=== PATIENT | female | born 1950 | race Caucasian/White ===

== ENCOUNTER → 2021-09-22 18:30 | Outpatient (CLI) | payer MEDICARE, BC, SELFPAY | PROVIDERS: Visit Provider Physician Assistant | DX: N89.8 Other specified noninflammatory disorders of vagina (principal) | CPT/HCPCS: 87086; 87210 ==

== ENCOUNTER → 2023-03-19 10:45 | Outpatient (CLI) | payer MEDICARE, BC, SELFPAY ==
--- NOTE | 2023-03-19 | DI.RAD.S_ITS ---
Bone Density Report Name: MCKENZIE LOPEZ Age: 73 Sex: Female Ethnicity: White Date of : 1950 Indication: postmenopausal; screening for osteoporosis; Referring Provider: SURAJ ELY Study: Bone densitometry was performed. Exam Date: March 19, 2023 Accession number: [id number] Bone Density: Region BMD T-score Z-score Classification AP Spine(L1-L4) 0.823 -2.0 0.1 Osteopenia Femoral Neck (Left) 0.561 -2.6 -0.7 Osteoporosis Total Hip (Left) 0.709 -1.9 -0.3 Osteopenia Femoral Neck (Right) 0.572 -2.5 -0.6 Osteoporosis Total Hip (Right) 0.735 -1.7 -0.1 Osteopenia Total Hip Mean 0.722 -1.8 -0.2 Osteopenia World Health Organization criteria for BMD impression classify patients as: Normal (T-score at or above -1.0), Osteopenia (T-score between -1.0 and -2.5), or Osteoporosis (T-score at or below -2.5). Impression: The patient has osteoporosis, based on the Left Femoral Neck T-score. Discussion: INCREASED RISK OF FRACTURE. BONE DENSITY IS UNDESIRABLY LOW AT ONE OR MORE SKELETAL SITES, CONSISTENT WITH POSTMENOPAUSAL OSTEOPOROSIS. This patient's lowest T-score meets the World Health Organization's (WHO) criteria for osteoporosis at one or more sites (T-score -2.5 or below). In untreated patients, the risk of osteoporotic fracture increases approximately two-fold for each 1.0 SD decrease in T-score. Low bone density is not the only risk factor for fracture; also consider factors such as patient's age, frailty or poor health, risk of falling, risk of injury, previous osteoporotic fracture, family history of osteoporosis, cigarette smoking, low body weight, etc. Not everyone with low bone mineral density has osteoporosis; osteomalacia and other metabolic bone disorders should also be considered. Patients who have osteoporosis should be evaluated for specific diseases and conditions (secondary causes) that may cause or contribute to bone loss. The [place] [employer]ocrinologists (AACE) and National Osteoporosis Foundation (NOF) recommend pharmacologic intervention for all postmenopausal women whose T-score is in this range. The patient should follow a healthful lifestyle (good nutrition with adequate calcium and vitamin D, and appropriate weight-bearing exercise). Follow-Up: Consider a repeat BMD and Vertebral Fracture Assessment (VFA) exam in 2 years or sooner if medically necessary, to reassess this patient's status. Reported by: HEIDY BOURNE MD on 03/19/2023 12:35:00 PM.
== END ==
PROVIDERS: PCP Internal Medicine; Referring Provider Internal Medicine Rheumatology; Visit Provider Internal Medicine Rheumatology
DX: M81.0 Age-related osteoporosis without current pathological fracture (principal); Z13.820 Encounter for screening for osteoporosis; Z78.0 Asymptomatic menopausal state
CPT/HCPCS: 77080

== ENCOUNTER 2025-02-25 19:13 | Emergency (ER) | payer MEDICARE, BC, SELFPAY ==
[2025-02-25 19:17] VITALS: BP 136/63; PULSE 74; RESP 18; TEMP 37.1; O2SAT 97; BMI 23.7
--- NOTE | 2025-02-25 19:27 | PC.NURSE ---
At time of triage pts wound cleaned with soap and water. Pt offered pain meds and an ice pack but declined.
--- NOTE | 2025-02-25 21:19 | ED.UPPEXIN ---
HPI - Extremity Injury (Upper) General Chief Complaint: Extremity Injury, Upper Stated Complaint: Rt hand slammed in door, bleeding Time Seen by Provider: 02/25/25 21:06 Source: patient Mode of arrival: Ambulatory History of Present Illness HPI narrative: 75-year-old female caught her right middle finger in same car door at gas station earlier this evening, has pain and swelling with volar aspect 3rd finger laceration. No other injuries. No numbness or tingling to the end of the finger. No prior finger injuries. She is not seem to have any pain with the other fingers on that hand, nor at her ipsilateral palmar hand wrist forearm. She cannot recall year of last tetanus, likely many years ago. Related Data Home Medications ?Medication ?Instructions ?Recorded ?Confirmed calcium 600 mg capsule 1,200 mg PO DAILY 01/13/23 01/22/23 cholecalciferol (vitamin D3) 25 25 mcg PO DAILY 01/13/23 01/22/23 mcg (1,000 unit) capsule (Vitamin D3) fluoxetine 20 mg capsule 20 mg PO DAILY 01/13/23 01/22/23 omeprazole 20 mg capsule,delayed 20 mg PO DAILY 01/13/23 01/22/23 release Allergies Allergy/AdvReac Type Severity Reaction Status Date / Time No Known Drug Allergies Allergy Unverified 02/25/25 19:18 Patient History Surgical History H/O lumpectomy Family History Mother Breast cancer Father Kidney malignancy Aunt Alzheimer disease Social History marital status: household members: spouse lives independently: Yes occupational status: previously employed Smoking Status: Former smoker alcohol intake: current substance use type: does not use Smoking Status: Former smoker Alcohol type: wine Exam Narrative Exam Narrative: GENERAL: Well-developed patient, in mild distress. HEAD: Atraumatic. Normocephalic. EYES: Pupils equal round and reactive. Extraocular motions intact. No scleral icterus. No injection or drainage. ENT: Nose without bleeding, purulent drainage. Throat without erythema, tonsillar hypertrophy or exudate. Airway patent. NECK: Trachea midline. Non tender CARDIOVASCULAR: Regular rate and rhythm without murmurs, gallops, or rubs. RESPIRATORY: Clear to auscultation. Breath sounds equal bilaterally. No wheezes, rales, or rhonchi. GASTROINTESTINAL: Abdomen soft, non-tender, nondistended. EXTREMITIES: Laceration horizontal 0.7 cm over PIP crease volar aspect right middle finger, no visible tendon. She is able to flex and fully extend her finger. Good distal sensation to light touch. No other injuries to ipsilateral hand or other fingers or palm or forearm. BACK: Nontender without deformity or crepitance. No flank tenderness. NEURO: AOx3. Motor functions grossly nonfocal. SKIN: No rash or erythema of visible areas Initial Vital Signs Initial Vital Signs: Vital Signs Temperature 98.7 F 02/25/25 19:17 Pulse Rate 74 02/25/25 19:17 Respiratory Rate 18 02/25/25 19:17 Blood Pressure 136/63 02/25/25 19:17 Pulse Oximetry 97 02/25/25 19:17 Oxygen Delivery Method Room Air 02/25/25 19:17 Procedures Laceration Repair Laceration 1: Time of procedure: 21:40 Side (If applicable): right Size (cm): 0.7 Description: linear Depth: simple, single layer Local Anesthetic: lidocaine 1% Amount of anesthesia used (mL): 1.5 Skin layer closed with: nylon Skin layer suture size: 5-0 Number of sutures: 1 Technique: simple, interrupted Course Orders Ordered: ED Orders 02/25/25 21:20 XR finger RT min 2V Stat Discontinued Medications Bacitracin (Bacitracin Oint 0.9 Gm Pckt) 1 applic TOP NOW ONE Stop: 02/25/25 21:42 Last Admin: 02/25/25 21:47 Dose: 1 applic Documented By: TIMMY Diphtheria/Tetanus/Acell Pertussis (Tet,Diph,Pertuss(Acell),Vac/Pf 0.5 Ml Syringe) 0.5 ml IM .ONCE ONE Stop: 02/25/25 21:37 Last Admin: 02/25/25 21:46 Dose: 0.5 ml Documented By: TIMMY Vital Signs Vital signs: Vital Signs - 8 hr 02/25/25 22:07 Pulse Rate 66 Respiratory Rate 18 Blood Pressure 131/63 Pulse Oximetry 97 Oxygen Delivery Method Room Air MDM - Extremity Injury (Upper) Imaging Data Extremity x-ray #1: Radiologist's Impression: [facility] [address] [place] [address] XRay Report Signed Patient: Deborah Mejias MR#: [id number] : 1950 Acct:[id number] Age/Sex: 75 / F Date of Service: 02/25/25 Loc: ED Accession Number: [id number] Procedure: XR finger RT min 2V Ordering Provider: Tj Camargo MD PROCEDURE: XR FINGER RT MIN 2V INDICATIONS: slammed in car door, eval for fx TECHNIQUE: AP hand, 2 views of the right 3rd finger(s) acquired. COMPARISON: None. FINDINGS: Bones: No fractures or dislocations. No suspicious bony lesions. Soft tissues: No suspicious soft tissue calcifications. IMPRESSION: No acute bony abnormality. Dictated by: Sg Kemp M.D. on 02/25/2025 at 21:43 Approved by: Sg Kemp M.D. on 02/25/2025 at 21:44 [facility] Narrative Medical decision making narrative: 75-year-old female with laceration less than 1 cm through the volar aspect right middle finger, horizontal, no visible tendon, flexion and extension function intact. X-rays without obvious fractures. Patient can fully extend, no visible tendon, we did discuss it is possible to have partial tendon injury does not visible at this time, we would not advise wide skin incision for further explanation, we will close the skin, recheck in follow up. Local anesthesia injection, no obvious tendon injury, skin subcentimeter laceration closed with single skin stitch, see separate procedure note. Dressing placed by nursing, then finger splint. Wound check advised with PCP next couple of days. Suture removal in 7-10 days likely. Advised to take Tylenol and or Motrin as needed for pain control. Discharged home. Return precautions discussed. Discharge Plan Departure Patient Disposition: Home Clinical Impression: Laceration of finger, Contusion of finger Activity Restrictions/Additional Instructions: Right middle finger caught in slammed car door this evening, pain and laceration to the right middle finger volar aspect. Subcentimeter laceration, no visible tendon, good flexion and extension function. X-ray without obvious fracture changes to the bones. Wound closed with local anesthetic, and single nylon stitch. Antibiotic ointment applied, finger splint applied. Consider wound check with your regular doctor in 2-3 days. Suture removal 7-10 days as it is over a movable joint and can separate if sutures are taken out too soon. Recheck earlier to this/nearest emergency department for any change worsening symptoms or any concerns prior. Tetanus shot update also given. Prescriptions: No Action calcium 600 mg Capsule 1,200 mg PO DAILY omeprazole 20 mg Capsule,Delayed Release(Dr/Ec) 20 mg PO DAILY fluoxetine 20 mg Capsule 20 mg PO DAILY cholecalciferol (vitamin D3) [Vitamin D3] 25 mcg (1,000 unit) Capsule 25 mcg PO DAILY Referrals: Deirdre Terry MD [Primary Care Provider, Internal Medicine] Stand Alone Forms: Patient Portal/API
[2025-02-25] MEDS: TET,DIPH,PERTUSS(ACELL),VAC/PF 0.5 ML SYRINGE IM (21:46)
[2025-02-25] MEDS: BACITRACIN OINT 0.9 GM PCKT 1 APPLIC TOP (21:47)
[2025-02-25 22:07] VITALS: BP 131/63; PULSE 66; RESP 18; O2SAT 97
== END 2025-02-25 22:04 | disposition home or self-care (01) ==
PROVIDERS: Emergency Provider Emergency Medicine; PCP Internal Medicine
DX: S61.212A Laceration without foreign body of right middle finger without damage to nail, initial encounter (principal); S60.031A Contusion of right middle finger without damage to nail, initial encounter; W23.0XXA Caught, crushed, jammed, or pinched between moving objects, initial encounter; Z23 Encounter for immunization
CPT/HCPCS: 12001; 73140; 90471; 99283; 90715